=== PATIENT | female | born 1945 | race Two or more races ===

== ENCOUNTER 2020-04-11 01:48 | Emergency (ER) | payer MEDICARE, OTHER ==
[~2020-04-11] VITALS: Ht 162.6 cm; Wt 73.3 kg
--- NOTE | 2020-04-11 01:53 | PHYS DOC ---
General Adult HPI: HPI: ".. I got this sore throat.. and nodes on the Lt....I don't think it is strept...I ve had strept every year for thirty years in a row..but I also have a rash...they just did a biopsy on it..." "Mainly I want to know whether I had the flu or strep throat... I don't think is strept..." Patient is a 75 year old female4 who presents with above hx and complaints sore throat,skin lesions she had for months and a twitch in Lt . Pectoralis muscle . Patient denies any travel. Patient denies any ill contacts. Does smoke. The pt.follows with [facility] Review of Systems: Review of Systems: Constitutional: Denies fever or chills Eyes: Denies change in visual acuity HENT: Complains of sore throat Respiratory: Denies cough or shortness of breath Cardiovascular: Denies chest pain or edema GI: Denies abdominal pain, nausea, vomiting, bloody stools or diarrhea : Denies dysuria Musculoskeletal: Denies back pain or joint pain Integument: Complains of rash Neurologic: Denies headache, focal weakness or sensory changes Endocrine: Denies polyuria or polydipsia Lymphatic: Denies swollen glands Psychiatric: Denies depression or anxiety Family History: Family History: Noncontributory to presentation Current Medications: Current Meds: See nursing for home meds Allergies: Allergies: Allergic to Keflex, and Flagyl, and pantoprazole Physical Exam: PE: Constitutional: no acute distress, non-toxic appearance. [] HENT: Normocephalic, atraumatic, bilateral external ears normal, oropharynx moist, mild injection pharynx no oral exudates, nose normal. [] Eyes: PERRLA, EOMI, conjunctiva normal, no discharge. [] Neck: Normal range of motion, no tenderness, supple, no stridor. Few small nodes right angle of jaw and anterior cervical chain Cardiovascular:Heart rate regular rhythm, no murmur [] Lungs & Thorax: Bilateral breath sounds equal apex with few scattered wheezes auscultation [] Abdomen: Bowel sounds normal, soft, no tenderness, no masses, no pulsatile masses. [] Skin: Warm, dry, no erythema, nondescript erythemic patchy rash [] Back: No tenderness, no CVA tenderness. [] Extremities: No tenderness, no cyanosis, no clubbing, ROM intact, no edema. No cording appreciated Neurologic: Alert and oriented X 3, normal motor function, normal sensory function, no focal deficits noted. [] Psychologic: Affect anxious, judgement normal, mood normal. [] EKG: EKG: [] Radiology/Procedures: Radiology/Procedures: [] Heart Score: HEART Score for Chest Pain: HEART Score for Chest Pain Response (Comments) Value Age > 65 2 Risk Factors 1 or 2 Risk Factors 1 Troponin >1-<3x Normal Limit 1 Total 4 Risk Factors: Risk Factors: DM, Current or recent (<one month) smoker, HTN, HLP, family history of CAD, obesity. Risk Scores: Score 0 - 3: 2.5% MACE over next 6 weeks - Discharge Home Score 4 - 6: 20.3% MACE over next 6 weeks - Admit for Clinical Observation Score 7 - 10: 72.7% MACE over next 6 weeks - Early Invasive Strategies Course & Med Decision Making: Course & Med Decision Making Pertinent Labs and Imaging studies reviewed. (See chart for details) Patient follow-up biopsy results of rash. Patient to gargle with Listerine 4 times a day. Patient follow-up primary care. May have Tylenol and ibuprofen for discomfort. Follow-up primary care. Recommend patient avoid tobacco smoke. Return if any concerns. Impression: 1. Viral Syndrome/pharyngitis 2. Chronic skin [id number] results pending 3. Muscle Twitching. [] Dragon Disclaimer: Dragon Disclaimer: This electronic medical record was generated, in whole or in part, using a voice recognition dictation system. Departure Departure: Referrals: CHAMP DALY MD (PCP) CHUCK OROPEZA MD Apr 11, 2020 01:53
[2020-04-11 02:00] VITALS: BP 142/74
[2020-04-11 04:05] LABS: INFLUENZA A PATIENT NEGATIVE (NEGATIVE); INFLUENZA B PATIENT NEGATIVE (NEGATIVE)
== END 2020-04-11 04:11 | disposition home or self-care (01) ==
LOC: ER 01:48
DX: R25.3 Fasciculation (principal); L98.8 Other specified disorders of the skin and subcutaneous tissue; R21 Rash and other nonspecific skin eruption; J02.9 Acute pharyngitis, unspecified; Z88.8 Allergy status to other drugs, medicaments and biological substances
CPT/HCPCS: 87070; 87804; 87880; 99283

== ENCOUNTER 2021-05-14 19:10 | Emergency (ER) | payer MEDICARE, OTHER ==
[~2021-05-14] VITALS: Ht 162.6 cm; Wt 73.3 kg
[2021-05-14] MEDS ORDERED: CONTRAST GIVEN. MC PRN (19:30)
[2021-05-14] MEDS ORDERED: IOHEXOL 350 MG/ML 100 ML VIAL. IV ONE (19:30)
[2021-05-14] MEDS: IV RINGERS SOLUTION,LACTATED 1,000 ML IV ONE ×2 (19:30→21:00)
--- NOTE | 2021-05-14 19:33 | PHYS DOC ---
Past History Past Medical History: Arthritis, COPD, GERD, Other Additional Past Medical Histor: rash; sciatica (TRAE DAVILA MD) Past Surgical History: No Surgical History (TRAE DAVILA MD) Alcohol Use: Occasionally (TRAE DAVILA MD) Adult General HPI HPI Patient is a 76-year-old female with known lung cancer, A. fib on Eliquis, hypertension, and GERD who presents from [facility] and rehab for shortness of breath. Per EMS she was discharged from [facility] at about 5 PM after being in for some shortness of breath. EMS states that on arrival patient had oxygen saturations in the 50s and was placed on 15 L nonrebreather. Per patient and patient's she is DNR, wanting no chest compressions, no shocks and no endotracheal intubation but is okay with oxygen, fluids, pain, nausea medicine and antibiotics. (TRAE DAVILA MD) Review of Systems Review of Systems Review of systems otherwise unremarkable except noted in HPI (TRAE DAVILA MD) Allergies Allergies Allergies Coded Allergies Type Severity Reaction Last Updated Verified cephalexin Allergy Intermediate Rash 04/11/20 Yes metronidazole Allergy Intermediate Itching 04/11/20 Yes pantoprazole Allergy Intermediate 04/11/20 Yes (TRAE DAVILA MD) Physical Exam Physical Exam Constitutional: Well developed, cachectic, in acute respiratory distress, appears ill [] HENT: Normocephalic, atraumatic, oropharynx dry, no oral exudates, nose normal. [] Eyes: PERRLA, EOMI, conjunctiva normal, no discharge. [] Neck: Normal range of motion, no tenderness, supple, no stridor. [] Cardiovascular:Heart rate regular rhythm, no murmur [] Lungs & Thorax: Respiratory distress, hypoxia, increased work of breathing, global bilateral rhonchi, mild wheeze Abdomen: soft, no tenderness, no masses, no pulsatile masses. [] Skin: Warm, dry, no erythema, no rash. [] Extremities: No tenderness, no cyanosis, no clubbing, ROM intact, no edema. [] Neurologic: GCS of 14, moving all extremities, responds to stimulation extremi ties, NIH unavailable due to patient's altered mental state] (TRAE DAVILA MD) EKG EKG [] (TRAE DAVILA MD) Radiology/Procedures Radiology/Procedures [] (TRAE DAVILA MD) Heart Score C/O Chest Pain: No Risk Factors: Risk Factors: DM, Current or recent (<one month) smoker, HTN, HLP, family history of CAD, obesity. Risk Scores: Risk Factors: DM, Current or recent (<one month) smoker, HTN, HLP, family history of CAD, obesity. (TRAE DAVILA MD) Course & Med Decision Making Course & Med Decision Making Patient is a 76-year-old female with lung cancer who presents for shortness of breath and acute respiratory distress and altered Vital signs notable for tachycardia, tachypnea, hypoxia on room air, placed on the monitor with 2 peripheral IVs placed, placed on nonrebreather and nasal jun nilo, blood cultures obtained, fluid resuscitation begun, started on antibiotics Patient sats hanging around 85% so placed on BiPAP which brought patient's oxygenation to upper 90s and respiratory rate between 25 and 30 with improvement in heart rate as well from the 140s down to around 110. Laboratory analysis notable for neutrophilic leukocytosis and thrombocytosis.. Discussed situation with patient and patient's and recommended admission. Family stated that they were just discharged from [facility] earlier in the day after being in for 28 days and if they were admitted that is where they would like to go. Called and discussed patient with [facility] hospitalist and transfer team for readmission of the patient they discharged earlier in the day. Hospitalist and transfer team stated they currently did not have a bed but they would in the morning and would like to take the patient back and asked if we would call back in the morning. (TRAE DAVILA MD) Course & Med Decision Making I assumed care after comprehensive signout from outgoing physician. Patient accepted for hospital transfer to [facility] Nonetheless, during my evaluation after comprehensive review of ER work-up so far, I personally saw patient repeating aspects of history and physical exam. Patient with metastatic squamous cell lung cancer with all care managed at [facility] facility, she request to go home I had an extensive discussion with the patient regarding wanting to transition care from DNR status only with ongoing medical treatment to hospice/palliative/comfort care measures. Pt was A&Ox4 and had full medical decision making capacity This decision was further discussed in presence of significant other who confirms patient is at baseline in addition to sister over the phone who also confirms patient is at baseline. I contacted [facility] facility and reviewed her medical chart/history with attending physician, their plans were to transition patient to hospice immediately as this was previously discussed and agreed upon by patient, sig other and sister. Given updates on extent of the patient's cancer with limited treatment options, I agree and abide by patient's wishes. Patient transition to comfort care measures while in the ER. Patient provided IV benzodiazepine and pain medication with improvement in symptoms Hospice company contacted who has contract with assisted living facility for which patient was brought from yesterday. Patient to be returning back to presenting facility for further palliative/hospice care Critical Care Time This patient required critical care. Due to the fact that the patient required a significant amount of one on one physician - patient contact time, ordering and review of studies, arranging urgent treatment with development of a management plan, evaluation of patients response to treatment with frequent reassessments, and discussions with other providers this patient required 35 minutes of critical care time. Critical care time was indicated due to the inherent inst ability and/or potential for instability in this patient. The critical care time that is allocated to this patient is above and beyond any time spent on any other billable procedures performed on this patient. (STEVE BULL DO) Dragon Disclaimer Dragon Disclaimer This electronic medical record was generated, in whole or in part, using a voice recognition dictation system. (TRAE DAVILA MD) Departure Departure: Impression: Primary Impression: Altered mental status Additional Impressions: Respiratory failure Hypoxia Lung cancer Disposition: 50 HOSPICE/HOME Condition: CRITICAL Referrals: CHAMP DALY MD (PCP) Problem Qualifiers TRAE DAVILA MD May 14, 2021 19:33 STEVE BULL DO May 15, 2021 17:14
[2021-05-14] MEDS: MIDAZOLAM HCL PF 5 MG/5 ML VIAL. IM ONE (20:15)
[2021-05-14 20:20] LABS: BASO # 0.1 x10^3/uL (0.0-0.2); BASO % 0 % (0-3); EOS % 0 % (0-3); HEMATOCRIT 31.5 % (36.0-47.0); LYMPH # 1.1 x10^3/uL (1.0-4.8); LYMPH % 6 % (24-48); MEAN CORPUSCULAR HEMOGLOBIN 28 pg (25-35); MEAN CORPUSCULAR HGB CONC 32 g/dL (31-37); MEAN CORPUSCULAR VOLUME 87 fL (79-100); MONO % 5 % (0-9); NEUT # 16.6 x10^3uL (1.8-7.7); NEUT % 88 % (31-73); PLATELET COUNT 705 x10^3/uL (140-400); RED CELL DISTRIBUTION WIDTH 18.8 % (11.5-14.5); WHITE BLOOD COUNT 18.8 x10^3/uL (4.0-11.0)
[2021-05-14] MEDS: IPRATRPIUM/ALBUTEROL 0.5/2.5MG 3 ML NEBU. NEB ONE (20:41)
[2021-05-14 20:43] LABS: % BANDS 2 % (0-9); % LYMPHS 8 % (24-48); % MONOS 2 % (0-10); % SEGS 88 % (35-66); ANISOCYTOSIS SLIGHT; PLT ESTIMATE INCREASED (ADEQUATE)
[2021-05-14 21:35] LABS: CALCIUM 8.6 mg/dL (8.5-10.1); CREATININE 0.4 mg/dL (0.6-1.0); GFR 155.6; POTASSIUM 5.1 mmol/L (3.5-5.1)
[2021-05-14 21:42] LABS: ALBUMIN 1.4 g/dL (3.4-5.0); ALBUMIN/GLOBULIN RATIO 0.4 (1.0-1.7); TOTAL BILIRUBIN 0.1 mg/dL (0.2-1.0); TOTAL PROTEIN 4.8 g/dL (6.4-8.2)
--- NOTE | 2021-05-14 21:42 | EKG ---
[address] [address] Test Date: 2021-05-14 Test Time: 20:51:33 Pat Name: COOPER STAUFFER Department: Room: Gender: F Chief Client Officer: FRED : 1945 Requested By: TRAE DAVILA Order Number: [id number] Reading MD: Measurements Intervals [place] Rate: 128 P: 227 TX: 110 QRS: -11 QRSD: 86 T: 85 QT: 346 QTc: 509 Interpretive Statements SINUS TACHYCARDIA LEFTWARD AXIS LOW LIMB LEAD VOLTAGE INCOMPLETE RIGHT BUNDLE BRANCH BLOCK QRS(T) CONTOUR ABNORMALITY CONSIDER ANTEROSEPTAL MYOCARDIAL DAMAGE T ABNORMALITY IN HIGH LATERAL LEADS ABNORMAL ECG RI6.02 No previous ECG available for comparison
[2021-05-14] MEDS: DEXAMETHASONE SOD PHOS 10 MG/ML VIAL. IV ONE (22:16)
--- NOTE | 2021-05-14 22:28 | RAD ---
Exam: CT head INDICATION: Altered mental status TECHNIQUE: Sequential axial images through the head were obtained without the administration of IV co ntrast. Exposure: One or more of the following in the visualized dose reduction techniques were utilized for this examination: 1. Automated exposure control 2. Adjustment of the MA and/or KV according to patient size 3. Use of iterative of reconstructive technique Comparisons: None FINDINGS: No focal parenchymal lesion or hemorrhage is identified. There is no midline shift or sulcal effaceme nt. Mild patchy hypodensity in the periventricular white matter. No acute vascular territory infarction i s identified. Carrillo-white distinction is preserved. The ventricular system is within normal limits without compression hydrocephalus. The basal cisterns are well maintained. The visualized portions of the paranasal sinuses and mastoid air cells are well-pneumatized. No acute fractures. IMPRESSION: Mild small vessel schema change, technically age indeterminate without recent prior imaging. Electronically signed by: Tera Giordano MD (05/14/2021 10:25 PM) [facility]
--- NOTE | 2021-05-14 22:38 | RAD ---
Exam: CT of chest, abdomen and pelvis with cancer INDICATION: Lung cancer, shortness of breath TECHNIQUE: Sequential axial images through the chest, abdomen and pelvis obtained following the admin istration of 100 mL of Isovue-370 IV contrast. Sagittal and coronal reformatted images were reconstru cted from the axial data and reviewed. 3-D reformatted images were reconstructed from the axial data and reviewed. Exposure: One or more of the following in the visualized dose reduction techniques were utilized for this examination: 1. Automated exposure control 2. Adjustment of the MA and/or KV according to patient size 3. Use of iterative of reconstructive technique Comparisons: None FINDINGS: Visualized portions of the thyroid are unremarkable. No enlarged mediastinal lymph nodes are identifi ed. Heart size is normal. No pericardial effusion. Thoracic aorta has a normal course and caliber. Pulmon miranda artery is not enlarged. No pulmonary embolus identified within the main, lobar or segmental pulmo nary arteries. Airways are patent. There is a cystic area within the collapsed left lower lobe which measures up to 6.8 cm in diameter. Consolidative changes noted in the left lower lobe. Atelectasis in the right lowe r lobe. Patchy ground glass opacity at lung bases bilaterally. Moderate-sized bilateral pleural effusions. There is a hypoattenuating lesion within the central right hepatic lobe which measures approximately 1.6 cm in diameter. Spleen, pancreas, and adrenals are unremarkable. Gallbladder surgically absent. No perinephric inflammation or hydronephrosis. Nonobstructing left renal calculi noted. No ureteral c alculi are seen. Bladder is partially distended and not well evaluated. Uterus is absent. No abnormal adnexal mass. Diverticulosis at the sigmoid colon without evidence of acute diverticulitis. Large and small bowel a re unremarkable. Appendix is not identified. No free intra-abdominal air or fluid. No obstruction. Abdominal aorta has normal course and caliber. Abdominal vasculature is patent. No enlarged intra-abdominal lymph nodes are identified. No suspicious osseous lesions or acute fractures. IMPRESSION: 1. No pulmonary embolus outside within the main, lobar or segmental pulmonary arteries. 2. Cystic lesion in the collapsed left lower lobe measuring up to 6.8 cm in diameter. This is incomp letely characterized may relate to known history of lung cancer. 3. Hypoattenuating lesion in the central right hepatic lobe measuring 1.6 cm. This nonspecific in et iology. Correlate with malignancy history. 4. Diverticulosis without evidence of acute diverticulitis. 5. Moderate bilateral pleural effusions with adjacent atelectasis. Electronically signed by: Tera Giordano MD (05/14/2021 10:36 PM) [facility]
[2021-05-14 22:54] LABS: INFLUENZA A PATIENT NEGATIVE (NEGATIVE); INFLUENZA B PATIENT NEGATIVE (NEGATIVE)
[2021-05-14] MEDS: IV DEXTROSE 5% - 0.9 % NACL 1,000 ML IV ONE (23:51)
[2021-05-14 23:56] LABS: BGAS PH 7.35 (7.35-7.45)
[2021-05-15] MEDS ORDERED: MIDAZOLAM HCL PF 5 MG/5 ML VIAL. ONE (04:40)
[2021-05-15] MEDS: MIDAZOLAM HCL PF 5 MG/5 ML VIAL. IV ONE ×2 (04:45)
[2021-05-15] MEDS: ASPIRIN CHEWABLE 81 MG TABLET. PO ONE (05:15)
[2021-05-15 05:24] LABS: BACTERIA,URINE 0 /HPF (0-FEW); BILIRUBIN,URINE NEG (NEG); CLARITY,URINE CLEAR; COLOR,URINE YELLOW; GLUCOSE,URINE NEG (NEG); NITRITE,URINE NEG (NEG); SQUAMOUS EPITHELIAL CELL,UR OCC /LPF; UROBILINOGEN,URINE 0.2 mg/dL (0.2 mg/dL); WBC,URINE OCC /HPF (0-4)
[2021-05-15 06:00] LABS: BASO % 0 % (0-3); EOS % 0 % (0-3); HEMATOCRIT 24.6 % (36.0-47.0); HEMOGLOBIN 7.9 g/dL (12.0-15.5); LYMPH # 0.3 x10^3/uL (1.0-4.8); LYMPH % 2 % (24-48); MEAN CORPUSCULAR HEMOGLOBIN 28 pg (25-35); MEAN CORPUSCULAR HGB CONC 32 g/dL (31-37); MEAN CORPUSCULAR VOLUME 87 fL (79-100); MONO # 0.2 x10^3/uL (0.0-1.1); MONO % 2 % (0-9); NEUT # 11.5 x10^3uL (1.8-7.7); NEUT % 96 % (31-73); PLATELET COUNT 381 x10^3/uL (140-400); RED BLOOD COUNT 2.82 x10^6/uL (3.50-5.40); RED CELL DISTRIBUTION WIDTH 18.4 % (11.5-14.5)
[2021-05-15 06:07] LABS: CALCIUM 8.2 mg/dL (8.5-10.1); CREATININE 0.4 mg/dL (0.6-1.0); GFR 155.6; POTASSIUM 4.8 mmol/L (3.5-5.1)
[2021-05-15] MEDS: ACETAMINOPHEN 325 MG TABLET PO ONE (08:00)
[2021-05-15] MEDS: IPRATRPIUM/ALBUTEROL 0.5/2.5MG 3 ML NEBU. NEB ONE ×2 (16:09→18:47)
[2021-05-15 20:30] VITALS: BP 118/62
== END 2021-05-15 20:30 | disposition hospice, home (50) ==
LOC: ER 19:10
DX: J96.91 Respiratory failure, unspecified with hypoxia (principal); R41.82 Altered mental status, unspecified; M19.90 Unspecified osteoarthritis, unspecified site; J44.9 Chronic obstructive pulmonary disease, unspecified; K21.9 Gastro-esophageal reflux disease without esophagitis; I48.91 Unspecified atrial fibrillation; Z20.822 Contact with and (suspected) exposure to COVID-19; Z85.118 Personal history of other malignant neoplasm of bronchus and lung; Z79.01 Long term (current) use of anticoagulants; Z88.1 Allergy status to other antibiotic agents; Z88.8 Allergy status to other drugs, medicaments and biological substances
CPT/HCPCS: 36415; 36600; 70450; 71275; 74177; 80048; 80053; 81001; 82803; 83605; 83735; 84484; 85007; 85025; 85610; 85730; 87040; 93005; 94640; 94660; 96361; 96365; 96372; 96375; 96376; 99291; J1100; J1956; J2060; J2250; J3010; J7042; J7120; P9612; U0003